=== PATIENT | female | born 2000 | race Caucasian/White ===

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

== ENCOUNTER 2023-06-16 10:52 | Emergency (ER) | payer BC, OTHER ==
[~2023-06-16] VITALS: Ht 170.2 cm; Wt 98.9 kg
[~2023-06-16 10:52] MED LIST: AMOX TR-K CLV1 EAC1 PO; DAY TIME COLD-1 EAC1 PO
[2023-06-16 11:44] LABS: INFLUENZA B NAA NEGATIVE (NEGATIVE); RESPIRATORY SYNCYTIAL VIR NAA NEGATIVE (NEGATIVE)
[2023-06-16 14:04] VITALS: BP 142/101
== END 2023-06-16 14:04 | disposition home or self-care (01) ==
LOC: ED 10:52
PROVIDERS: Emergency Medicine
DX: J06.9 Acute upper respiratory infection, unspecified (principal); F17.200 Nicotine dependence, unspecified, uncomplicated; Z20.822 Contact with and (suspected) exposure to COVID-19
CPT/HCPCS: 87502; 99283; C9803; U0002

== ENCOUNTER 2024-09-11 18:17 | Emergency (ER) | payer OTHER ==
[~2024-09-11] VITALS: Ht 170.2 cm; Wt 80.7 kg
[2024-09-11] MEDS ORDERED: KETOROLAC TROMETHAMINE 30 MG/ML VIAL IM ONE (20:45)
[2024-09-11 21:17] VITALS: BP 117/80
== END 2024-09-11 21:18 | disposition home or self-care (01) ==
LOC: ED 18:17
DX: S93.401A Sprain of unspecified ligament of right ankle, initial encounter (principal); J45.909 Unspecified asthma, uncomplicated; F17.200 Nicotine dependence, unspecified, uncomplicated; X50.1XXA Overexertion from prolonged static or awkward postures, initial encounter
CPT/HCPCS: 73610; 96372; 99283; J1885

== ENCOUNTER 2024-11-19 10:35 | Emergency (ER) | payer OTHER ==
[~2024-11-19] VITALS: Ht 170.2 cm; Wt 83.0 kg
[2024-11-19 13:30] VITALS: BP 128/83
== END 2024-11-19 13:31 | disposition home or self-care (01) ==
LOC: ED 10:35
DX: J02.9 Acute pharyngitis, unspecified (principal); J45.909 Unspecified asthma, uncomplicated; F17.200 Nicotine dependence, unspecified, uncomplicated
CPT/HCPCS: 87651; 99283

== ENCOUNTER 2025-05-22 19:43 | Emergency (ER) | payer OTHER ==
[~2025-05-22] VITALS: Ht 170.2 cm; Wt 83.0 kg
[2025-05-22 21:16] VITALS: BP 121/82
== END 2025-05-22 21:16 | disposition home or self-care (01) ==
LOC: ED 19:43
DX: S61.211A Laceration without foreign body of left index finger without damage to nail, initial encounter (principal); F17.200 Nicotine dependence, unspecified, uncomplicated; W45.8XXA Other foreign body or object entering through skin, initial encounter; Y93.G1 Activity, food preparation and clean up